=== PATIENT | male | born 1975 | race Caucasian/White ===

== ENCOUNTER → 2020-07-03 10:32 | Outpatient (BNVA) | payer MEDICARE, BC, SELFPAY | PROVIDERS: PCP Internal Medicine; Visit Provider Internal Medicine | DX: M25.511 Pain in right shoulder (principal); M25.512 Pain in left shoulder; D86.9 Sarcoidosis, unspecified; R79.89 Other specified abnormal findings of blood chemistry; F17.220 Nicotine dependence, chewing tobacco, uncomplicated; H53.8 Other visual disturbances; E29.1 Testicular hypofunction; M25.50 Pain in unspecified joint; M79.642 Pain in left hand; M79.641 Pain in right hand; Z11.59 Encounter for screening for other viral diseases | CPT/HCPCS: 36415; 73030; 73120; 81001; 82310; 82550; 82728; 82784; 83516; 83540; 83970; 84100; 84403; 85651; 86140; 86704; 86803; 86812; 87340; 99204 ==

== ENCOUNTER 2020-07-03 11:59 | Outpatient (CLI) | payer MEDICARE, BC, SELFPAY ==
--- NOTE | 2020-07-03 12:08 | XR_ITS ---
WS: [id number] LEFT HAND: 2 VIEW(S) TECHNIQUE: PA and lateral. HISTORY: hand pain COMPARISON: None available. No acute fracture or dislocation. No soft tissue or bone abnormality. No erosions. Prior plate and screw fixation distal radius. XR/XR hand LT 2V [id number] IMPRESSION: No significant arthritis.
--- NOTE | 2020-07-03 12:08 | XRR_ITS ---
PROCEDURE INFORMATION: Exam: XR Right Shoulder Exam date and time: 07/03/2020 12:34 PM Age: 45 years old Clinical indication: Pain; Shoulder; Bilateral; Additional info: Shoulder pain TECHNIQUE: Imaging protocol: XR Right shoulder. Views: 2 or more views. COMPARISON: No relevant prior studies available. FINDINGS: Bones/joints: No fracture. No dislocation. Mild narrowing of the acromioclavicular joint. The acromiohumeral interval is normal. Soft tissues: No acute soft tissue abnormality. XR/XR shoulder RT min 2V* [id number] IMPRESSION: No acute osseous abnormality.
--- NOTE | 2020-07-03 12:08 | XR_ITS ---
WS: [id number] RIGHT HAND: 2 VIEW(S) TECHNIQUE: PA and lateral. HISTORY: hand pain COMPARISON: None available. No acute fracture or dislocation. No soft tissue or bone abnormality. XR/XR hand RT 2V [id number] IMPRESSION: Normal RIGHT hand.
--- NOTE | 2020-07-03 12:08 | XRR_ITS ---
PROCEDURE INFORMATION: Exam: XR Left Shoulder Exam date and time: 07/03/2020 12:34 PM Age: 45 years old Clinical indication: Pain; Shoulder; Bilateral; Additional info: Shoulder pain TECHNIQUE: Imaging protocol: XR Left shoulder. Views: 2 or more views. COMPARISON: No relevant prior studies available. FINDINGS: Bones/joints: No fracture. No dislocation. Mild narrowing of the acromioclavicular joint. The acromiohumeral interval is normal. Soft tissues: No acute soft tissue abnormality. XR/XR shoulder LT min 2V* [id number] IMPRESSION: No acute osseous abnormality.
[2020-07-03 13:02] LABS: C Reactive Protein 7.3 mg/L (0.0-4.9); Creatine Phosphokinase 104 U/L (39-308); Ferritin 378 ng/mL (30-400); Iron 71 ug/dL (59-158); Phosphorus 4.1 mg/dL (2.5-4.5)
[2020-07-03 13:18] LABS: Add Urine Microscopic? YES; Bilirubin Urine Neg (Negative); Blood Urine Neg (Negative); Glucose Urine UA Norm (Normal); Ketones Urine Negative (Negative); Leukocyte Esterase Urine Negative (Negative); Nitrate Urine Negative (Negative); Protein Urine Neg (Negative); Urine Appearance Cloudy (CLEAR); Urine Color Yellow (Yellow); Urobilinogen Urine Norm (Negative); pH Urine 7 (5-7)
[2020-07-03 13:18] LABS: Hepatitis B Core AB, Total Non-Reactive (Nonreactive); Hepatitis B Surface Antigen Non-Reactive (Nonreactive); Hepatitis C Virus Antibody Non-Reactive (Nonreactive); Parathyroid Hormone 22.3 pg/mL (15-65)
[2020-07-03 13:25] LABS: Testosterone Total 232.2 ng/dL (249-836)
[2020-07-03 13:26] LABS: Add Urine Culture? No; Amorphous Sediment Urine 4+ /hpf; Bacteria Urine TRACE /hpf; Squamous Epithelial Cell Urine 0-4 /hpf (0-5)
[2020-07-03 13:29] LABS: Calcium 9.9 mg/dL (8.5-10.5)
[2020-07-03 14:21] LABS: Erythrocyte Sedimentation Rate 14 mm/hr (0-10)
[2020-07-05 19:12] LABS: HLA-B27 NEGATIVE (NEGATIVE)
[2020-07-06 12:37] LABS: Tissue Transglutaminase IgA Ab <1 U/mL; Tissue transglutaminase Ab.IgG 5 U/mL
[2020-07-09 20:38] LABS: Gliadin Ab.IgA 4 U (<20); Gliadin Ab.IgG 2 U (<20)
[2020-07-09 21:33] LABS: Immunoglobulin A 108 mg/dL (47-310)
== END 2020-07-03 12:00 | disposition home or self-care (01) ==
LOC: LAB 12:05
PROVIDERS: PCP Internal Medicine; Visit Provider Internal Medicine
DX: M79.642 Pain in left hand; M79.641 Pain in right hand; M25.512 Pain in left shoulder; M25.511 Pain in right shoulder; D86.9 Sarcoidosis, unspecified; M25.542 Pain in joints of left hand; M25.541 Pain in joints of right hand
CPT/HCPCS: 36415; 73030; 73120; 81001; 82310; 82550; 82728; 82784; 83516; 83540; 83970; 84100; 84403; 85651; 86140; 86704; 86803; 86812; 87340

== ENCOUNTER → 2020-07-09 09:51 | Outpatient (BNVA) | payer MEDICARE, BC, SELFPAY | PROVIDERS: PCP Internal Medicine; Referring Provider Internal Medicine; Visit Provider Internal Medicine | DX: E29.1 Testicular hypofunction (principal); R79.89 Other specified abnormal findings of blood chemistry; R53.83 Other fatigue; H54.7 Unspecified visual loss | CPT/HCPCS: 99204 ==

== ENCOUNTER → 2020-11-04 13:15 | Outpatient (BNVA) | payer MEDICARE, BC, SELFPAY | PROVIDERS: PCP Internal Medicine; Visit Provider Internal Medicine | DX: M25.50 Pain in unspecified joint (principal); R53.83 Other fatigue; R79.89 Other specified abnormal findings of blood chemistry; F17.220 Nicotine dependence, chewing tobacco, uncomplicated | CPT/HCPCS: 72040; 99213; 99214 ==

== ENCOUNTER 2020-11-04 14:07 | Outpatient (CLI) | payer MEDICARE, BC, SELFPAY ==
--- NOTE | 2020-11-04 14:14 | XR_ITS ---
WS: [id number] LATERAL CERVICAL SPINE: 3 view. Lateral radiographs are performed in upright neutral, flexion and extension to the patient's toleranc e. HISTORY: M25.50 - Pain in unspecified joint COMPARISON: None available. Very slight straightening of the normal cervical lordosis. Disc spaces and vertebral body heights are normal. No instability with flexion and extension. XR/XR cervical spine fl/ex [id number] IMPRESSION: No cervical instability.
== END 2020-11-04 14:08 | disposition home or self-care (01) ==
LOC: RADWPI 14:11
PROVIDERS: PCP Internal Medicine; Visit Provider Internal Medicine
DX: M25.50 Pain in unspecified joint (principal)
CPT/HCPCS: 72040

== ENCOUNTER → 2021-03-18 09:22 | Outpatient (BNVA) | payer MEDICARE, BC, SELFPAY | PROVIDERS: PCP Internal Medicine; Visit Provider Internal Medicine | DX: M25.50 Pain in unspecified joint (principal); R79.89 Other specified abnormal findings of blood chemistry; R53.83 Other fatigue; Z79.899 Other long term (current) drug therapy; F17.210 Nicotine dependence, cigarettes, uncomplicated | CPT/HCPCS: 99213 ==

== ENCOUNTER → 2021-08-27 09:26 | Outpatient (BNVA) | payer MEDICARE, BC, SELFPAY | PROVIDERS: PCP Internal Medicine; Visit Provider Internal Medicine | DX: M25.50 Pain in unspecified joint (principal); R79.89 Other specified abnormal findings of blood chemistry; R53.83 Other fatigue; Z79.52 Long term (current) use of systemic steroids; R79.82 Elevated C-reactive protein (CRP); F17.210 Nicotine dependence, cigarettes, uncomplicated | CPT/HCPCS: 99214 ==

== ENCOUNTER → 2022-01-14 08:52 | Outpatient (BNVA) | payer MEDICARE, BC, SELFPAY | PROVIDERS: PCP Internal Medicine; Visit Provider Internal Medicine | DX: M25.50 Pain in unspecified joint (principal); R79.89 Other specified abnormal findings of blood chemistry; Z87.891 Personal history of nicotine dependence | CPT/HCPCS: 99214 ==

== ENCOUNTER → 2022-06-15 13:49 | Outpatient (BNVA) | payer MEDICARE, BC, SELFPAY | PROVIDERS: PCP Internal Medicine; Visit Provider Internal Medicine | DX: M06.00 Rheumatoid arthritis without rheumatoid factor, unspecified site (principal); R79.82 Elevated C-reactive protein (CRP) | CPT/HCPCS: 36415; 80053; 85025; 85651; 86140; 99213; 99214 ==

== ENCOUNTER → 2022-11-04 15:01 | Outpatient (BNVA) | payer MEDICARE, BC, SELFPAY | PROVIDERS: PCP Internal Medicine; Visit Provider Internal Medicine | DX: M06.00 Rheumatoid arthritis without rheumatoid factor, unspecified site (principal); R79.82 Elevated C-reactive protein (CRP) | CPT/HCPCS: 99213 ==